=== PATIENT | male | born 1990 | race Caucasian/White ===

== ENCOUNTER 2016-09-28 11:22 | Emergency (ER) | payer SELFPAY ==
[2016-09-28] MEDS ORDERED: Sodium Chloride 0.9% 1,000 ML ONE (11:50)
[2016-09-28 11:58] LABS: #Basophils 0.1 thou/uL (0.0-0.2); #Monocytes 0.6 thou/uL (0.11-0.59); #Neutrophils 12.7 thou/uL (1.40-6.50); %Basophils 0.4 % (0.0-1.0); %Eosinophils 0.2 % (0.0-10.0); %Lymphocytes 6.7 % (21.0-51.0); %Monocytes 4.3 % (0.0-10.0); Red Blood Cell (RBC) Count 5.52 mill/uL (4.70-6.10); White Blood Cell (WBC) Count 14.4 thou/uL (4.8-10.8)
[2016-09-28 12:03] LABS: ALT (SGPT) 70 U/L (0-55); AST (SGOT) 38 U/L (5-34); Alkaline Phosphatase 133 U/L (40-150); Anion Gap 19 mmol/L (10-20); BUN (Urea Nitrogen) 10 mg/dL (8.9-20.6); Bilirubin, Total 0.4 mg/dL (0.2-1.2); Calc. Creatinine Clearance 0 mL/min (70-130); Calcium 9.6 mg/dL (7.8-10.44); Carbon Dioxide 19 mmol/L (22-29); Chloride 101 mmol/L (98-107); Estimated GFR-MDRD Greater than 90; Protein, Total 7.7 g/dL (6.0-8.3)
[2016-09-28 12:12] LABS: CK (CPK) 85 U/L (30-200)
[2016-09-28 12:15] LABS: Troponin I Less than 0.010 ng/mL (< 0.028)
[2016-09-28 12:50] LABS: Methadone Not Detected (NotDetected); Methamphetamine Not Detected (NotDetected)
--- NOTE | 2016-09-28 13:44 | ERRECORD ---
[facility] EMERGENCY RECORD ADMIN (11:32 [facility]) MERGE: Ambulance WedSep 28, 2016 11:12. HPI WEAK-DIZZY (14:00 [facility]) CHIEF COMPLAINT: Patient presents for evaluation of Pt woke up this am feeling dizzy and 'fuzzy in my head'. Associated with anxiety and numbness of his hands which is a normal sensation for him with his anxiety. Some palpitations that have resolved. Pt is an alcoholic with a history of heavy drinking daily >18 beers a day. Pt last drank last pm at 1800. Pt was worried his BP was up so took a lisinopril he had left from previously. No BP meds in 1 year. HISTORIAN: History provided by patient. LOCATION: No localizing symptoms. QUALITY: Symptoms described as, feeling unsteady, generalized weakness, Patient is alert and oriented to person, place and time, Son coma score is 15. TIME COURSE: Patient unable to describe onset of symptoms, Symptoms are improving. ASSOCIATED WITH: No associated ataxia, No associated chest pain, No associated chills, No associated fever, No associated gait disturbance, No associated headache, No associated nausea, Associated with palpitations, currently resolved, No associated vomiting, No associated visual changes, No associated upper respiratory infection. EXACERBATED BY: Patient's condition exacerbated by ambulating. RELIEVED BY: Patient's condition relieved by time. ROS (14:03 [facility]) CONSTITUTIONAL: Historian denies chills, denies fever. EYES: Historian denies eye pain, denies eye redness, denies eye discharge. ENT: Historian denies rhinorrhea, denies sore throat. CARDIOVASCULAR: Historian denies chest pain, reports palpitations. RESPIRATORY: Historian denies cough, denies sputum. SOB earlier that resolved. GI: Historian denies abdominal pain, denies diarrhea, denies nausea, denies vomiting. GENITOURINARY MALE: Historian denies dysuria, denies hematuria. MUSCULOSKELETAL: Historian denies arthralgias, denies myalgias. SKIN: Historian denies rash, denies skin changes. NEUROLOGIC: Historian reports dizziness, denies headache, denies paralysis, reports paresthesias. PSYCHIATRIC: Historian reports alcohol abuse, reports anxiety, reports drug abuse, reports marijuana abuse. PAST MEDICAL HISTORY MEDICAL HISTORY: Past medical history includes history of hypertension, which has been treated, NON COMPLIANT TAKING MEDS, HAS VERY POOR DENTITION. STATES IS IN PROCESS OF &a-1R&a+25V*p+0X*x2219C*c202B*c15G*c2P*p-0X&a-25V&a+1R Name: Maxime Weinberg : 1990 M26 MedRec: [id number] AcctNum: [id number] Prepared: WedSep 28, 2016 14:11 by Interface Page 1 of 3 pMD [facility] EMERGENCY RECORD GETTING DENTURES., Past medical history includes history of hypertension, which has been treated, Flu vaccine not up to date, Tetanus up to date, Pneumococcal vaccine not up to date. verified. (11:33 [facility]) MALE SURGICAL HISTORY: Patient has no surgical history. (11:33 [facility]) PSYCHIATRIC HISTORY: Psychiatric history includes, anxiety. (11:33 [facility]) SOCIAL HISTORY: Patient drinks every day, more than 10 drinks per day, Alcohol history notes: DRINKS A BOTTLE OF WHISKEY PER DAY, Patient currently uses drugs, abuses marijuana, Patient has no smoking history. (11:33 [facility]) FAMILY HISTORY: Notes: DIABETES, HTN. (11:46 [facility]) NOTES: Nursing records reviewed, Agree with nursing records. (14:04 [facility]) KNOWN ALLERGIES No Known Drug Allergies CURRENT MEDICATIONS (WedSep 28, 2016 11:31 [facility]) lisinopril: TABLET : Strength - 10 mg : ORAL Patient Dose: Unknown.Last Taken: 09/28/16. PT DOESN'T KNOW DOSAGE. VITAL SIGNS VITAL SIGNS: BP: 187/114 (Sitting), Pulse: 101 (Regular), Resp: 16 (Non-Labored), Temp: 97.9 (Oral), Pain: 0, O2 sat: 98 on Room Air, Time: 09/28/2016 11:29. (11:29 [facility]) BP: 138/79 (Lying), Pulse: 75 (Regular), Resp: 18 (Non-Labored), Pain: 0, O2 sat: 97 on Room Air, Time: 09/28/2016 11:56. (11:56 [facility]) BP: 142/92 (Lying), Pulse: 91 (Regular), Resp: 18 (Non-Labored), Pain: 0, O2 sat: 98 on Room Air, Time: 09/28/2016 12:29. (12:29 AL) BP: 131/71, Pulse: 85, Resp: 16, Pain: 0, O2 sat: 99 on RA, Time: 09/28/2016 13:02. (13:02 [facility]) PHYSICAL EXAM (14:03 [facility]) CONSTITUTIONAL: Vital signs reviewed, Patient appears non toxic, Patient alert and oriented to person, place and time. EYES: Eye exam included findings of eyelids normal to inspection, Pupils equally round and reactive to light, Conjunctiva normal. ENT: Pharynx exam normal, Uvula exam normal, Tonsil exam normal, Mouth exam included findings of, mucous membranes dry. NECK: Neck exam included findings of normal range of motion, Trachea midline, no jugular venous distention, no cervical adenopathy. RESPIRATORY CHEST: Respiratory exam included findings of no respiratory distress, Breath sounds clear, No wheezing, No rales, No rhonchi, Chest exam included findings of chest movement symmetrical. &a-1R&a+25V*p+0X*b5106L*c202B*c15G*c2P*p-0X&a-25V&a+1R Name: Maxime Weinberg : 1990 M26 MedRec: [id number] AcctNum: [id number] Prepared: WedSep 28, 2016 14:11 by Interface Page 2 of 3 pMD [facility] EMERGENCY RECORD CARDIOVASCULAR: Cardiovascular exam included findings of heart rate regular rate and rhythm, Heart sounds normal, normal S1, normal S2, no murmurs, no rub, no gallop. ABDOMEN MALE: Abdominal exam included findings of abdomen nontender, Bowel sounds normal. BACK: Back exam included findings of normal inspection, range of motion normal. UPPER EXTREMITY: Upper extremity exam included findings of inspection normal, Radial pulse normal, no cyanosis, no clubbing, no edema. LOWER EXTREMITY: Lower extremity exam included findings of inspection normal, no edema, no calf tenderness. NEURO: Son coma scale 15, Neuro exam findings include patient oriented to person, place and time, Speech normal. SKIN: Skin exam included findings of skin warm, dry, and normal in color, no rash. PSYCHIATRIC: Affect, anxious. MEDICATION ADMINISTRATION SUMMARY Drug Name: hydrALAZINE injection, Dose Ordered: 10 mg, Route: IV Push, Status: Held, Time: 11:56 09/28/2016, Drug Name: *sodium chloride 0.9 % intravenous, Dose Ordered: 1 L, Route: IV Fluid Infusion, Status: Given, Time: 11:50 09/28/2016, *Additional information available in notes, Detailed record available in Medication Service section. DOCTOR NOTES (13:03 [facility]) RE-EVALUATION: The patient's condition has improved, Feels better with the fluid. PROBLEM LIST No recorded problems DIAGNOSIS (13:04 [facility]) FINAL: PRIMARY: DIZZINESS AND GIDDINESS, ADDITIONAL: Alcohol abuse with anxiety. PRESCRIPTION No recorded prescriptions DISPOSITION PATIENT: Disposition Type: Discharge, Disposition: *Discharge Home. (13:04 [facility]) Patient left the department. (13:15 [facility]) [place]: ABIODUN=MD Tashi, Paco LHAL=AKIRA Tovar, Shonda &a-1R&a+25V*p+0X*c4703W*c202B*c15G*c2P*p-0X&a-25V&a+1R Name: Maxime Weinberg : 1990 M26 MedRec: [id number] AcctNum: [id number] Prepared: WedSep 28, 2016 14:11 by Interface Page 3 of 3 pMD [facility]D
--- NOTE | 2016-09-28 13:49 | PICIS ---
[facility] EMERGENCY RECORD ADMIN MERGE: Ambulance WedSep 28, 2016 11:12. (11:32 LHAL) TRIAGE (WedSep 28, 2016 11:31 LHAL) PATIENT: NAME: Maxime Weinberg, AGE: 26, GENDER: male, : [facility] 1990, TIME OF GREET: WedSep 28, 2016 11:23, PREFERRED LANGUAGE: [place] Verdean, ETHNICITY: Not or , ECODE BILLING MAP: [facility], SSN: [id number], Zip Code: [address], KG WEIGHT: 81.65, PHONE: , , , PERSON ID: [id number], PCP: none. (WedSep 28, 2016 11:31 LHAL) TRIAGE NOTES: WOKE UP AT 9A FEELING ANXIOUS AND WEAK, NOT TAKING HIS BP MEDS X 1 YR- STATES HE CAME HOME DRUNK LAST NIGHT AND PASSED OUT. (WedSep 28, 2016 11:31 LHAL) COMPLAINT: WEAK,ANXIOUS. (WedSep 28, 2016 11:31 LHAL) ADMISSION: URGENCY: 3 Urgent, ADMISSION SOURCE: Home, TRANSPORT: AMBULANCE - [facility], BED: TRIAGE. (WedSep 28, 2016 11:31 LHAL) ASSESSMENT: Assessment: WOKE UP FEELING ANXIOUS AND WEAK, Symptoms began 9 AM. (11:33 LHAL) PAIN: No complaint of pain, No aggravating factors, No efforts tried to relieve symptoms. (11:33 LHAL) IMMUNIZATIONS: Flu vaccine not up to date, Tetanus immunization up to date, Pneumococcal vaccine not up to date. (11:33 LHAL) SIRS SCORING: Heart Rate 55-109 (0), Temp range 96.8-101.1 (0), respiratory rate 12-24 (0), Mental Status altered: no (0), Infection or Suspected Infection: No. (11:33 LHAL) TRIAGE SCREENING: Patient denies suicidal ideation, Patient denies presence of domestic violence. (11:33 LHAL) PROVIDERS: TRIAGE NURSE: Shonda Tovar RN. (WedSep 28, 2016 11:31 LHAL) VITAL SIGNS: BP 187/114, (Sitting), Pulse 101, (Regular), Resp 16, (Non-Labored), Temp 97.9, (Oral), Pain 0, O2 Sat 98, on Room Air, Time 09/28/2016 11:29. (11:29 LHAL) PREVIOUS VISIT ALLERGIES: No Known Drug Allergies. (WedSep 28, 2016 11:31 LHAL) No Known Drug Allergies. (11:33 LHAL) KNOWN ALLERGIES No Known Drug Allergies CURRENT MEDICATIONS (WedSep 28, 2016 11:31 LHAL) lisinopril: TABLET : Strength - 10 mg : ORAL Patient Dose: Unknown.Last Taken: 09/28/16. PT DOESN'T KNOW DOSAGE. VITAL SIGNS VITAL SIGNS: BP: 187/114 (Sitting), Pulse: 101 (Regular), Resp: 16 (Non-Labored), Temp: 97.9 (Oral), Pain: 0, O2 sat: 98 on Room Air, &a-1R&a+25V*p+0X*s5057G*c202B*c15G*c2P*p-0X&a-25V&a+1R Name: Maxime Weinberg : 1990 M26 MedRec: [id number] AcctNum: [id number] Prepared: WedSep 28, 2016 14:17 by Interface Page 1 of 12 pMD [facility] EMERGENCY RECORD Time: 09/28/2016 11:29. (11:29 LHAL) BP: 138/79 (Lying), Pulse: 75 (Regular), Resp: 18 (Non-Labored), Pain: 0, O2 sat: 97 on Room Air, Time: 09/28/2016 11:56. (11:56 LHAL) BP: 142/92 (Lying), Pulse: 91 (Regular), Resp: 18 (Non-Labored), Pain: 0, O2 sat: 98 on Room Air, Time: 09/28/2016 12:29. (12:29 LHAL) BP: 131/71, Pulse: 85, Resp: 16, Pain: 0, O2 sat: 99 on RA, Time: 09/28/2016 13:02. (13:02 LHAL) NURSING ASSESSMENT: FOCUSED (11:31 LHAL) CONSTITUTIONAL: Patient arrives ambulatory, Gait steady, History obtained from patient, Patient appears, anxious, uncomfortable, Patient cooperative, Patient alert, Oriented to person, place and time, Skin warm, Skin dry, Skin normal in color, Mucous membranes pink, Mucous membranes moist, Patient is well-groomed, Patient complains of GENERALIZED WEAKNESS, ANXIOUS, NAUSEA, PT AMBULATES TO ROOM 3 ON EMS ARRIVAL AT 1120AM, STEADY GAIT, THEN TRIAGED. PAIN: Patient rates pain as 0 out of 10. EYES: Focused eye assessment finding include pupils equally round and reactive to light, Left pupil 3 mm in size, Right pupil 3 mm in size. NEURO: Focused neuro assessment findings include patient alert, cooperative, No facial droop noted, Speech coherent, Weakness, to all extremities, FEELS GENERALLY WEAK, no numbness, No loss of consciousness. GCS: GCS Total: 15. RESPIRATORY: Focused respiratory assessment findings include breath sounds clear, to the left upper lobe, to the right upper lobe, to bilateral upper lobes, to the right middle lobe, to the left lower lobe, to the right lower lobe, to bilateral lower lobes. ABDOMEN: Focused abdominal assessment findings include abdomen soft, non tender, Nausea present, Vomiting, Number of times: X 1 IN TRIAGE ONLY, SMALL AMT, Bowel sounds present. GENITOURINARY: Focused genitourinary assessment not applicable. MUSCULOSKELETAL: Focused musculoskeletal assessment findings include normal range of motion. LACERATION: Focused laceration assessment not applicable. NOTES: Notes: PT DRINKS WHISKEY DAILY, APPROX ONE BOTTLE A DAY, SMOKES WEED, LAST TIME WAS YESTERDAY, PT HASN'T EATEN YET TODAY, FINGERSTICK BS PER EMS WAS 214, PT HAS FAMILY HX DIABETES, HTN, PT HASN'T BEEN TAKING HIS BP MED REGULARLY X ONE YR, TAKES "WHEN I NEED IT", TOOK ONE ORANGE GROWER. SAFETY: Side rails up, Cart/Stretcher in lowest position, Call light within reach, Hospital ID band on. NURSING PROCEDURE: CHIMNEY CONSTRUCTION SUPERVISOR (11:50 LHAL) PATIENT IDENTIFIER: Patient actively involved in identification process, Patient's identity verified by patient stating name, Patient's identity verified by patient stating date, Patient's &a-1R&a+25V*p+0X*j3659D*c202B*c15G*c2P*p-0X&a-25V&a+1R Name: Maxime Weinberg : 1990 M26 MedRec: [id number] AcctNum: [id number] Prepared: WedSep 28, 2016 14:17 by Interface Page 2 of 12 D [facility] EMERGENCY RECORD identity verified by hospital ID ayo. CHIMNEY CONSTRUCTION SUPERVISOR: Cardiac monitoring indicated for WEAKNESS, HTN, DIZZY, Patient placed on dress designer, Heart rate: 85, showing normal sinus rhythm, without ectopy, with no ST segment changes, Strip posted on chart, Patient placed on non-invasive blood pressure monitor, with disposable blood pressure cuff applied, Patient placed on continuous pulse oximetry, Adult/pediatric oxisensor applied, Oxygen saturation 97%. FOLLOW-UP: After procedure, alarms set and on, After procedure, patient tolerating monitoring. SAFETY: Side rails up, Cart/Stretcher in lowest position, Call light within reach, Hospital ID band on. NURSING PROCEDURE: DISCHARGE NOTE (13:11 LHAL) DISCHARGE: Patient discharged to home, ambulating without assistance, friend driving, accompanied by friend, Summary of Care printed/ provided, Patient requested and was provided an electronic copy of Discharge Instructions, Transition record given to patient, Discharge instructions given to patient, Simple or moderate discharge teaching performed, by Genoveva TOVAR RN, Medication reconciliation form given, and reviewed with patient, Above person(s) verbalized understanding of discharge instructions and follow-up care, Notes: DC HOME STABLE, NO SYMPTOMS, A&OX3, SKIN PINK W/D, NORMAL EVEN RESP, AMBULATES STEADY GAIT. BELONGINGS: Belongings and valuables with patient upon arrival to the Emergency Department include:. NURSING PROCEDURE: EKG CHART (11:35 JPAR) PATIENT IDENTIFIER: Patient actively involved in identification process, Patient's identity verified by patient stating name, Patient's identity verified by patient stating date, Patient's identity verified by hospital ID ayo. EKG: EKG indicated for HTN, Anxiety, 12 lead EKG performed on the left chest, done by Sudarshan KING, first EKG. FOLLOW-UP: After procedure, EKG for interpretation given to Dr. Akins. SAFETY: Side rails up, Cart/Stretcher in lowest position, Call light within reach, Hospital ID band on. NURSING PROCEDURE: IV PATIENT IDENITIFIER: Patient actively involved in identification process, Patient's identity verified by patient stating name, Patient's identity verified by patient stating date, Patient's identity verified by hospital ID bracelet. (11:35 LHAL) IV SITE 1: IV therapy indicated for hydration, IV established, to the left wrist, using a 20 gauge catheter, in one attempt, IV site prepped with CHLOROPREP, Saline lock established, Flushed with normal saline (mls): 10 CC, Labs drawn at time of placement, labeled in the presence of the patient and sent to lab. (11:35 LHAL) FOLLOW-UP SITE 1: IV discontinued, due to patient being &a-1R&a+25V*p+0X*b7200K*c202B*c15G*c2P*p-0X&a-25V&a+1R Name: Maxime Weinberg : 1990 M26 MedRec: [id number] AcctNum: [id number] Prepared: WedSep 28, 2016 14:17 by Interface Page 3 of 12 pMD [facility] EMERGENCY RECORD discharged, catheter intact. (13:12 LHAL) SAFETY: Side rails up, Cart/Stretcher in lowest position, Call light within reach, Hospital ID band on. (11:35 LHAL) NURSING PROCEDURE: NURSE NOTES NURSES NOTES: Patient examined by physician. (11:41 LHAL) Patient is improving, Patient in no apparent distress, Patient resting quietly, Patient is awaiting results, Notes: LIGHTS DIMMED, RESTING WITH EYES CLOSED, NO COMPLAINTS,. (12:06 LHAL) Patient is improving, Patient in no apparent distress, Warm blanket given to patient, Notes: PT STATES HE FEELS MUCH BETTER, IVF INFUSED. (12:30 LHAL) Patient re-evaluated by physician. (13:02 LHAL) VITAL SIGNS: BP: 131, / 71, Pulse: 85, Resp: 16, Pain: 0, O2 sat: 99, on: RA. (13:02 LHAL) NURSING PROCEDURE: ORTHOSTATIC VITAL SIGNS (11:31 LHAL) PATIENT IDENTIFIER: Patient actively involved in identification process, Patient's identity verified by patient stating name, Patient's identity verified by patient stating date, Patient's identity verified by hospital ID bracelet. ORTHOSTATIC VITAL SIGNS: Orthostatic vital signs indicated for dizziness, Orthostatic vital signs indicated for vomiting and diarrhea, Orthostatic vital signs indicated for NAUSEATED, VOMITED X 1, Lying:, Blood pressure: 151/85, Pulse: 85, No dizziness, Sitting:, Blood pressure: 164/108, Pulse: 95, No dizziness with position change, Standing:, Blood pressure: 159/103, Pulse: 93, No dizziness with position change, Notes: DONE AT 1124, ASYMPTOMATIC. FOLLOW-UP: After procedure, results given to Dr. DR Elizabeth AKINS. SAFETY: Side rails up, Cart/Stretcher in lowest position, Call light within reach, Hospital ID band on. NURSING PROCEDURE: URINE COLLECTION (12:29 [facility]) PATIENT IDENTIFIER: Patient actively involved in identification process, Patient's identity verified by patient stating name, Patient's identity verified by patient stating date, Patient's identity verified by hospital ID bracelet. URINE COLLECTION MALE: Urine collection indicated for DRUG SCREEN, Urine collected by void, output amount (mL) 100, urine yellow in color, and clear, Specimen labeled in the presence of the patient and sent to lab. SAFETY: Side rails up, Cart/Stretcher in lowest position, Call light within reach, Hospital ID band on. ORDER DETAILS Order Name: Alcohol, Status: Active, Time: 11:49 09/28/2016, User: ABIODUN, - Ordered for: MD Akins Joshua, - Entered by: MD Akins Joshua - WedSep 28, 2016 11:49, &a-1R&a+25V*p+0X*t9336D*c202B*c15G*c2P*p-0X&a-25V&a+1R Name: Maxime Weinberg : 1990 M26 MedRec: [id number] AcctNum: [id number] Prepared: WedSep 28, 2016 14:17 by Interface Page 4 of 12 pMD [facility] EMERGENCY RECORD - Quantity: 1, Order Name: B type Natriuretic Peptide, Status: Active, Time: 11:48 09/28/2016, User: ABIODUN, - Ordered for: MD Akins Joshua, - Entered by: MD Akins Joshua - WedSep 28, 2016 11:48, - Quantity: 1, Order Name: CHIMNEY CONSTRUCTION SUPERVISOR ED, Status: Done, Time: 11:49 09/28/2016, User: IRENA, - Ordered for: MD Akins Joshua, - Entered by: MD Akins Joshua - [facility] Sep 28, 2016 11:48, - Quantity: 1, Order Name: Cardiac Profile w/CKMB & Troponin - I, Status: Active, Time: 11:48 09/28/2016, User: ABIODUN, - Ordered for: MD Akins Joshua, - Entered by: MD Akins Joshua - [facility] Sep 28, 2016 11:48, - Quantity: 1, Order Name: CBC with Differential, Status: Active, Time: 11:32 09/28/2016, User: IRENA, - Ordered for: MD Akins Joshua, - Entered by: AKIRA Tovar, [facility] Sep 28, 2016 11:32, - Quantity: 1, Order Name: CK (CPK), Status: Active, Time: 11:48 09/28/2016, User: ABIODUN, - Ordered for: MD Akins Joshua, - Entered by: MD Akins Joshua [facility] Sep 28, 2016 11:48, - Quantity: 1, Order Name: Comprehensive Metabolic Panel, Status: Active, Time: 11:32 09/28/2016, User: IRENA, - Ordered for: MD Akins Joshua, - Entered by: AKIRA Tovar, [facility] Sep 28, 2016 11:32, - Quantity: 1, Order Name: Drug Screen, Urine, Status: Active, Time: 11:49 09/28/2016, User: ABIODUN, - Ordered for: MD Akins Joshua, - Entered by: MD Akins Joshua [facility] Sep 28, 2016 11:49, - Quantity: 1, Order Name: EKG 12 Lead in Emergency Room, Status: Active, Time: 11:32 09/28/2016, User: IRENA, - Ordered for: MD Akins Joshua, - Entered by: AKIRA Tovar [facility] Sep 28, 2016 11:32, - Quantity: 1, Order Name: ORTHOSTATIC VITAL SIGNS, Status: Done, Time: 11:47 09/28/2016, User: IRENA, - Ordered for: MD Akins Joshua, - Entered by: AKIRA Tovar Linda - WedSep 28, 2016 11:47, - Quantity: 1, Order Name: SALINE LOCK, Status: Done, Time: 11:34 09/28/2016, User: LHMONTY, - Ordered for: MD Akins Joshua, - Entered by: AKIRA Tovar Linda - WedSep 28, 2016 11:32, &a-1R&a+25V*p+0X*q9690K*c202B*c15G*c2P*p-0X&a-25V&a+1R Name: Maxime Weinberg : 1990 M26 MedRec: [id number] AcctNum: [id number] Prepared: WedSep 28, 2016 14:17 by Interface Page 5 of 12 pMD [facility] EMERGENCY RECORD - Quantity: 1. MEDICATION ADMINISTRATION SUMMARY Drug Name: hydrALAZINE injection, Dose Ordered: 10 mg, Route: IV Push, Status: Held, Time: 11:56 09/28/2016, Drug Name: *sodium chloride 0.9 % intravenous, Dose Ordered: 1 L, Route: IV Fluid Infusion, Status: Given, Time: 11:50 09/28/2016, *Additional information available in notes, Detailed record available in Medication Service section. MEDICATION SERVICE hydrALAZINE injection: Order: hydrALAZINE injection (hydralazine HCl) - Dose: 10 mg : IV Push Ordered by: Paco Akins MD Entered by: Paco Akins MD WedSep 28, 2016 11:50 , Held by: Shonda Tovar RN WedSep 28, 2016 11:56 Reason: Vital signs stabilized. sodium chloride 0.9 % intravenous: Order: sodium chloride 0.9 % intravenous (0.9 % sodium chloride) - Dose: 1 L : IV Fluid Infusion Notes: (Bolus) Ordered by: Paco Akins MD Entered by: Paco Akins MD WedSep 28, 2016 11:49 Documented as given by: Shonda Tovar RN WedSep 28, 2016 11:50 Patient, Medication, Dose, Route and Time verified prior to administration. Amount given: 1000 CC, IV SITE #1 IV fluids established for hydration, IV SITE #1 into left wrist, IV SITE #1 1st bag hung, amount 1 Liter hung, IV SITE #1 bolus of 1000 ml established, via primary tubing, Catheter placement confirmed via flush prior to administration, IV site without signs or symptoms of infiltration during medication administration, No swelling during administration, No drainage during administration, IV flushed after administration, Correct patient, time, route, dose and medication confirmed prior to administration, Patient advised of actions and side-effects prior to administration, Allergies confirmed and medications reviewed prior to administration, Administered by Genoveva TOVAR RN, Patient in position of comfort, Side rails up, Cart in lowest position. : Follow Up : No signs or symptoms of allergic reaction noted, Decreased symptoms, _IV SITE #1:_, IV fluid infusion discontinued, on WedSep 28, 2016 12:31, 45 minutes, ., Total amount infused: 1000 CC, IV Line flushed after administration, Advised not to ambulate without assistance, Patient in position of comfort, Side rails up, Cart in lowest position. (12:30 LHAL) HPI WEAK-DIZZY (14:00 JLOY) CHIEF COMPLAINT: Patient presents for evaluation of Pt woke up this am feeling dizzy and 'fuzzy in my head'. Associated with anxiety and numbness of his hands which is a normal sensation for him &a-1R&a+25V*p+0X*t4619I*c202B*c15G*c2P*p-0X&a-25V&a+1R Name: Maxime Weinberg : 1990 M26 MedRec: [id number] AcctNum: [id number] Prepared: WedSep 28, 2016 14:17 by Interface Page 6 of 12 pMD [facility] EMERGENCY RECORD with his anxiety. Some palpitations that have resolved. Pt is an alcoholic with a history of heavy drinking daily >18 beers a day. Pt last drank last pm at 1800. Pt was worried his BP was up so took a lisinopril he had left from previously. No BP meds in 1 year. HISTORIAN: History provided by patient. LOCATION: No localizing symptoms. QUALITY: Symptoms described as, feeling unsteady, generalized weakness, Patient is alert and oriented to person, place and time, [place] coma score is 15. TIME COURSE: Patient unable to describe onset of symptoms, Symptoms are improving. ASSOCIATED WITH: No associated ataxia, No associated chest pain, No associated chills, No associated fever, No associated gait disturbance, No associated headache, No associated nausea, Associated with palpitations, currently resolved, No associated vomiting, No associated visual changes, No associated upper respiratory infection. EXACERBATED BY: Patient's condition exacerbated by ambulating. RELIEVED BY: Patient's condition relieved by time. ROS (14:03 JL) CONSTITUTIONAL: Historian denies chills, denies fever. EYES: Historian denies eye pain, denies eye redness, denies eye discharge. ENT: Historian denies rhinorrhea, denies sore throat. CARDIOVASCULAR: Historian denies chest pain, reports palpitations. RESPIRATORY: Historian denies cough, denies sputum. SOB earlier that resolved. GI: Historian denies abdominal pain, denies diarrhea, denies nausea, denies vomiting. GENITOURINARY MALE: Historian denies dysuria, denies hematuria. MUSCULOSKELETAL: Historian denies arthralgias, denies myalgias. SKIN: Historian denies rash, denies skin changes. NEUROLOGIC: Historian reports dizziness, denies headache, denies paralysis, reports paresthesias. PSYCHIATRIC: Historian reports alcohol abuse, reports anxiety, reports drug abuse, reports marijuana abuse. PAST MEDICAL HISTORY MEDICAL HISTORY: Past medical history includes history of hypertension, which has been treated, NON COMPLIANT TAKING MEDS, HAS VERY POOR DENTITION. STATES IS IN PROCESS OF GETTING DENTURES., Past medical history includes history of hypertension, which has been treated, Flu vaccine not up to date, Tetanus up to date, Pneumococcal vaccine not up to date. verified. (11:33 LHAL) MALE SURGICAL HISTORY: Patient has no surgical history. (11:33 LHAL) PSYCHIATRIC HISTORY: Psychiatric history includes, &a-1R&a+25V*p+0X*c9904Q*c202B*c15G*c2P*p-0X&a-25V&a+1R Name: Maxime Weinberg : 1990 M26 MedRec: [id number] AcctNum: [id number] Prepared: WedSep 28, 2016 14:17 by Interface Page 7 of 12 pMD [facility] EMERGENCY RECORD anxiety. (11:33 LHAL) SOCIAL HISTORY: Patient drinks every day, more than 10 drinks per day, Alcohol history notes: DRINKS A BOTTLE OF WHISKEY PER DAY, Patient currently uses drugs, abuses marijuana, Patient has no smoking history. (11:33 LHAL) FAMILY HISTORY: Notes: DIABETES, HTN. (11:46 LHAL) NOTES: Nursing records reviewed, Agree with nursing records. (14:04 JL) PHYSICAL EXAM (14:03 JL) CONSTITUTIONAL: Vital signs reviewed, Patient appears non toxic, Patient alert and oriented to person, place and time. EYES: Eye exam included findings of eyelids normal to inspection, Pupils equally round and reactive to light, Conjunctiva normal. ENT: Pharynx exam normal, Uvula exam normal, Tonsil exam normal, Mouth exam included findings of, mucous membranes dry. NECK: Neck exam included findings of normal range of motion, Trachea midline, no jugular venous distention, no cervical adenopathy. RESPIRATORY CHEST: Respiratory exam included findings of no respiratory distress, Breath sounds clear, No wheezing, No rales, No rhonchi, Chest exam included findings of chest movement symmetrical. CARDIOVASCULAR: Cardiovascular exam included findings of heart rate regular rate and rhythm, Heart sounds normal, normal S1, normal S2, no murmurs, no rub, no gallop. ABDOMEN MALE: Abdominal exam included findings of abdomen nontender, Bowel sounds normal. BACK: Back exam included findings of normal inspection, range of motion normal. UPPER EXTREMITY: Upper extremity exam included findings of inspection normal, Radial pulse normal, no cyanosis, no clubbing, no edema. LOWER EXTREMITY: Lower extremity exam included findings of inspection normal, no edema, no calf tenderness. NEURO: [place] coma scale 15, Neuro exam findings include patient oriented to person, place and time, Speech normal. SKIN: Skin exam included findings of skin warm, dry, and normal in color, no rash. PSYCHIATRIC: Affect, anxious. EVENTS TRANSFER: Triage to Emergency Triage. (WedSep 28, 2016 11:31 LHAL) Emergency Triage to Emergency Room -03. (11:32 LHAL) Removed from Emergency Emergency Room -03. (13:15 LHAL) DOCTOR NOTES (13:03 [facility]) RE-EVALUATION: The patient's condition has improved, Feels better with the fluid. &a-1R&a+25V*p+0X*p2016L*c202B*c15G*c2P*p-0X&a-25V&a+1R Name: Maxime Weinberg : 1990 M26 MedRec: [id number] AcctNum: [id number] Prepared: WedSep 28, 2016 14:17 by Interface Page 8 of 12 pMD [facility] EMERGENCY RECORD PROBLEM LIST No recorded problems DIAGNOSIS (13:04 JLOY) FINAL: PRIMARY: DIZZINESS AND GIDDINESS, ADDITIONAL: Alcohol abuse with anxiety. DISPOSITION PATIENT: Disposition Type: Discharge, Disposition: *Discharge Home. (13:04 JLOY) Patient left the department. (13:15 LHAL) INSTRUCTION (13:05 JLOY) DISCHARGE: ALCOHOL ABUSE, ANXIETY REACTION. FOLLOWUP: Follow up with Primary Care Physician in 7-10 days. PRESCRIPTION No recorded prescriptions IMAGING *DISCHARGE INSTRUCTIONS RECEIPT: Image captured from scanner. (13:13 LHAL) *SUPPLY CHARGE SHEET: Image captured from scanner. (13:13 LHAL) MONITOR STRIPS: Image captured from scanner. (13:13 LHAL) *EKG: Image captured from scanner. (13:14 LHAL) ADMIN DIGITAL SIGNATURE: AKIRA Tovar, Shonda. (13:14 [facility]) MD Tashi, Paco. (14:04 JL) RESULTS LABORATORY: B type Natriuretic Peptide Collection DT: WedSep 28, 2016 11:59, B type Natriuretic Peptide Less than 10.0 pg/mL, Range (0-100). (12:25 JLOY) Cardiac Profile w/CKMB & TropI Collection DT: WedSep 28, 2016 11:59, CKMB 1.1 ng/mL, Range (0-6.6), Troponin I Less than 0.010 ng/mL, Range (< 0.028), Reference Range , 0.00 - 0.028 ng/mL Negative 0.029 - 0.29 ng/mL , Indeterminate Greater or Equal to 0.3 ng/mL Strongly suggests [place] , . (12:25 JLOY) Alcohol Collection DT: WedSep 28, 2016 11:59, Alcohol 14 mg/dL, Range (Less than 10), The pharmacological response to blood alcohol levels may vary from, individual to individual. &a-1R&a+25V*p+0X*l8332N*c202B*c15G*c2P*p-0X&a-25V&a+1R Name: Maxime Weinberg : 1990 M26 MedRec: [id number] AcctNum: [id number] Prepared: WedSep 28, 2016 14:17 by Interface Page 9 of 12 pMD [facility] EMERGENCY RECORD Negative: Less than 10, mg/dL Toxic: 50 - 100 mg/dL , Depression of [employer]: Greater than 100 mg/dL , Fatalities reported: Greater than 400 mg/dL . (12:25 [facility]) CK (CPK) Collection DT: WedSep 28, 2016 11:59, CK (CPK) 85 U/L, Range (30-200). (12:25 [facility]) Comprehensive Metabolic Panel Collection DT: WedSep 28, 2016 11:41, *Sodium 135 - L mmol/L, Range (136-145), Potassium 3.8 mmol/L, Range (3.5-5.1), Chloride 101 mmol/L, Range (98-107), *Carbon Dioxide 19 - L mmol/L, Range (22-29), Anion Gap 19 mmol/L, Range (10-20), BUN (Urea Nitrogen) 10 mg/dL, Range (8.9-20.6), Creatinine 0.89 mg/dL, Range (0.7-1.3), Estimated GFR-MDRD Greater than 90 , Reference Range for Estimated GFR: Greater than 90, mL/min/1.73 m2 NOTE: The MDRD equation has not been validated for use, with the elderly (over 70 years of age), women, patients with, serious comorbid condition or persons with extremes of body size, muscle, mass, or nutritional status. , *Glucose 190 - H mg/dL, Range (70-105), Calcium 9.6 mg/dL, Range (7.8-10.44), Bilirubin, Total 0.4 mg/dL, Range (0.2-1.2), Protein, Total 7.7 g/dL, Range (6.0-8.3), NOTE: Plasma values are generally 0.3 to 0.5 g/dL higher than serum values, due to the presence of fibrinogen. , Albumin 4.7 g/dL, Range (3.5-5.0), Globulin 3.0 g/dL, Range (2.4-3.5), Alb/Glob Ratio 1.6 g/dL, Range (1.2-2.2), Alkaline Phosphatase 133 U/L, Range (40-150), *AST (SGOT) 38 - H U/L, Range (5-34), *ALT (SGPT) 70 - H U/L, Range (0-55). (12:25 [facility]) CBC with Differential Collection DT: WedSep 28, 2016 11:41, *White Blood Cell (WBC) Count 14.4 - H thou/uL, Range (4.8-10.8), Red Blood Cell (RBC) Count 5.52 mill/uL, Range (4.70-6.10), Hemoglobin 15.4 g/dL, Range (14.0-18.0), Hematocrit 47.0 %, Range (42.0-52.0), Mean Corpuscular Volume 85.2 fl, Range (80.0-94.0), Mean Corpuscular Hemoglobin 27.9 pg, Range (27.0-31.0), Mean Corpuscular HGB CONC 32.7 g/dL, Range (32.0-36.0), &a-1R&a+25V*p+0X*t5967C*c202B*c15G*c2P*p-0X&a-25V&a+1R Name: Maxime Weinberg : 1990 M26 MedRec: [id number] AcctNum: [id number] Prepared: WedSep 28, 2016 14:17 by Interface Page 10 of 12 [facility] EMERGENCY RECORD RBC Distribution Width 12.6 %, Range (11.5-14.5), Platelet Count 386 thou/uL, Range (130-400), *Mean Platelet Volume 6.0 - L fL, Range (7.4-10.4), *%Neutrophils 88.5 - H %, Range (42.0-75.0), *%Lymphocytes 6.7 - L %, Range (21.0-51.0), %Monocytes 4.3 %, Range (0.0-10.0), %Eosinophils 0.2 %, Range (0.0-10.0), %Basophils 0.4 %, Range (0.0-1.0), *#Neutrophils 12.7 - H thou/uL, Range (1.40-6.50), *#Lymphocytes 1.0 - L thou/uL, Range (1.20-3.40), *#Monocytes 0.6 - H thou/uL, Range (0.11-0.59), #Eosinphils 0.0 thou/uL, Range (0.0-0.7), #Basophils 0.1 thou/uL, Range (0.0-0.2). (12:25 [facility]) Drug Screen, Urine Collection DT: WedSep 28, 2016 12:33, *THC/Cannabinoid Screen Detected - H , Range (NotDetected), Phencyclidine (PCP) Not Detected , Range (NotDetected), Cocaine Metabolite Screen Not Detected , Range (NotDetected), Methamphetamine Not Detected , Range (NotDetected), Opiate Screen Not Detected , Range (NotDetected), Amphetamine Not Detected , Range (NotDetected), Benzodiazepine Screen Not Detected , Range (NotDetected), Tricyclic Screen Not Detected , Range (NotDetected), Methadone Not Detected , Range (NotDetected), Barbiturates Screen Not Detected , Range (NotDetected), Oxycodone Screen Not Detected , Range (NotDetected), Propoxyphene Screen Not Detected , Range (NotDetected), Drug Screen Cutoff , Range (), The [employer] Profile-V Panel for Qualitative Drugs of Abuse assays are for, presumptive screening testing only. The drug class and detection limits, are as follows: Drug Class Detection Limit Amphetamine , 500 ng/mL* Barbiturates 200 ng/mL , Benzodiazepines 150 ng/mL* Cocaine 150 ng/mL*, Methamphetamine 500 ng/mL* Methadone 200, ng/mL* Opiates 100 ng/mL* Oxycodone , 100 ng/mL PCP 25 ng/mL Propoxyphene , 300 ng/mL Tricyclic Antidepressants 300 ng/mL Cannabinoids (THC) , 50 ng/mL Tests which yield a presumptive positive result must be , tested using a more specific alternate chemical method in order to obtain, a confirmed analytical result. Additional confirmation and identification, may be ordered on a routine basis, if desired. Presumptive positive urines, are held for &a-1R&a+25V*p+0X*x3818X*c202B*c15G*c2P*p-0X&a-25V&a+1R Name: Maxime Weinberg : 1990 6 MedRec: [id number] AcctNum: [id number] Prepared: WedSep 28, 2016 14:17 by Interface Page 11 of 12 [facility] EMERGENCY RECORD two weeks. . (13:01 ABIODUN) Sherman: ABOIDUN=MD Tashi, Paco ARMSTRONG=AKIRA Burnette, Sudarshan OSBORN=AKIRA Tovar, Shonda &a-1R&a+25V*p+0X*l5902F*c202B*c15G*c2P*p-0X&a-25V&a+1R Name: Maxime Weinberg : 1990 [facility] MedRec: [id number] AcctNum: [id number] Prepared: WedSep 28, 2016 14:17 by Interface Page 12 of 12 [facility] MEDICATION RECONCILIATION You were seen in the Emergency Department on: WedSep 28, 2016 KNOWN ALLERGIES No Known Drug Allergies MEDICATIONS GIVEN WHILE IN THE EMERGENCY DEPARTMENT sodium chloride 0.9 % intravenous (0.9 % sodium chloride) - Dose: 1 liter(s) : IV Fluid Infusion HOME MEDICATIONS CONTINUE PRESCRIBED lisinopril : TABLET : Strength - 10 mg : ORAL Continue as prescribed Patient had been taking: Dose unknown Last Taken: 09/28/16. Comment: PT DOESN'T KNOW DOSAGE. &a-1R&a+25V*p+0X*d2446K*c202B*c15G*c2P*p-0X&a-25V&a+1R Name: Maxime Weinberg : 1990 [facility] MedRec: [id number] AcctNum: [id number] Prepared: WedSep 28, 2016 14:17 by Interface Giuliana MARTINS
== END 2016-09-28 13:12 | disposition home or self-care (01) ==
LOC: NAV ERS 11:22
DX: F41.9 Anxiety disorder, unspecified (principal); F10.10 Alcohol abuse, uncomplicated; I10 Essential (primary) hypertension; Z79.899 Other long term (current) drug therapy
CPT/HCPCS: 80053; 80307; 82553; 83880; 84484; 85025; 93005; 96360; G0478; G0479; J7050

== ENCOUNTER 2017-05-20 19:08 | Emergency (ER) | payer SELFPAY ==
[2017-05-20 19:54] LABS: #Basophils 0.1 thou/uL (0.0-0.2); #Eosinphils 0.1 thou/uL (0.0-0.7); #Lymphocytes 1.5 thou/uL (1.20-3.40); #Monocytes 0.4 thou/uL (0.11-0.59); #Neutrophils 5.9 thou/uL (1.40-6.50); %Basophils 0.9 % (0.0-1.0); %Eosinophils 0.9 % (0.0-10.0); %Monocytes 4.5 % (0.0-10.0); %Neutrophils 74.7 % (42.0-75.0); Mean Corpuscular HGB CONC 32.2 g/dL (32.0-36.0); Mean Corpuscular Hemoglobin 26.7 pg (27.0-31.0); Mean Corpuscular Volume 82.8 fl (80.0-94.0); Mean Platelet Volume 5.9 fL (7.4-10.4); Platelet Count 325 thou/uL (130-400); RBC Distribution Width 12.2 % (11.5-14.5); Red Blood Cell (RBC) Count 5.63 mill/uL (4.70-6.10); White Blood Cell (WBC) Count 7.8 thou/uL (4.8-10.8)
--- NOTE | 2017-05-20 20:02 | RAD ---
AP CHEST: History: Chest pain. FINDINGS: Lungs are clear. Heart and mediastinum appear unremarkable. IMPRESSION: Negative chest. POS: [facility]
[2017-05-20] MEDS ORDERED: Sodium Chloride 0.9% 1,000 ML ONE (20:16)
[2017-05-20 20:18] LABS: Blood, Urine Trace (Negative); Clarity Clear (Clear); Glucose, Urine (Dipstick) Negative (Negative); Leukocyte Negative (Negative); Nitrite Negative (Negative); Protein, Urine (Dipstick) Negative (Neg-Trace); Specific Gravity, Urine 1.025 (1.005-1.030); Urobilinogen 0.2 mg/dL (0.2-1.0)
[2017-05-20 20:21] LABS: Amphetamine Not Detected (NotDetected); Barbiturates Screen Not Detected (NotDetected); Benzodiazepine Screen Not Detected (NotDetected); Cocaine Metabolite Screen Not Detected (NotDetected); Medtox Control Line Valid? VALID (VALID); Methadone Not Detected (NotDetected); Methamphetamine Not Detected (NotDetected); Opiate Screen Not Detected (NotDetected); Oxycodone Screen Not Detected (NotDetected); Phencyclidine (PCP) Not Detected (NotDetected); THC/Cannabinoid Screen Detected (NotDetected); Tricyclic Screen Not Detected (NotDetected)
[2017-05-20 20:22] LABS: Bilirubin Negative (Negative); Icto Negative (Negative)
[2017-05-20 20:29] LABS: CKMB 2.4 ng/mL (0-6.6); Troponin I Less than 0.010 ng/mL (< 0.028)
[2017-05-20 20:32] LABS: Bacteria/HPF None Seen HPF (None Seen); RBC/HPF None Seen HPF (0-3); Squamous Epithelial 0-3 HPF (0-3); WBC/HPF None Seen HPF (0-3)
[2017-05-20 20:56] LABS: ALT (SGPT) 74 U/L (8-55); AST (SGOT) 41 U/L (5-34); Albumin 4.8 g/dL (3.5-5.0); Alkaline Phosphatase 101 U/L (40-150); Anion Gap 16 mmol/L (10-20); BUN (Urea Nitrogen) 11 mg/dL (8.9-20.6); Bilirubin, Total 0.8 mg/dL (0.2-1.2); Calc. Creatinine Clearance 0 mL/min (70-130); Carbon Dioxide 24 mmol/L (22-29); Chloride 100 mmol/L (98-107); Estimated GFR-MDRD Greater than 90; Globulin 3.3 g/dL (2.4-3.5); Glucose 161 mg/dL (70-105); Lipase 20 U/L (8-78); Potassium 3.5 mmol/L (3.5-5.1); Protein, Total 8.1 g/dL (6.0-8.3); Sodium 136 mmol/L (136-145)
== END 2017-05-20 21:25 | disposition home or self-care (01) ==
LOC: NAV ERS 19:08
DX: R00.2 Palpitations (principal); K02.9 Dental caries, unspecified; I10 Essential (primary) hypertension; F41.9 Anxiety disorder, unspecified; Z79.899 Other long term (current) drug therapy
CPT/HCPCS: 36415; 71010; 80053; 80306; 81003; 81015; 82553; 83690; 83735; 84443; 84484; 85025; 93005; 96360; J7050

== ENCOUNTER 2018-04-22 15:31 | Emergency (ER) | payer SELFPAY ==
[2018-04-22] MEDS ORDERED: Acetaminophen 500 MG TAB ONE (15:53)
[2018-04-22 15:54] LABS: #Basophils 0.1 thou/uL (0.0-0.2); #Eosinphils 0.5 thou/uL (0.0-0.7); #Lymphocytes 1.5 thou/uL (1.20-3.40); #Monocytes 0.8 thou/uL (0.11-0.59); #Neutrophils 6.8 thou/uL (1.40-6.50); %Basophils 0.7 % (0.0-1.0); %Eosinophils 5.3 % (0.0-10.0); %Lymphocytes 15.8 % (21.0-51.0); %Monocytes 8.4 % (0.0-10.0); %Neutrophils 69.9 % (42.0-75.0); Hemoglobin 13.3 g/dL (14.0-18.0); Mean Corpuscular HGB CONC 32.2 g/dL (32.0-36.0); Mean Corpuscular Hemoglobin 26.5 pg (27.0-31.0); Mean Corpuscular Volume 82.3 fL (78.0-98.0); Mean Platelet Volume 6.4 fL (7.4-10.4); Platelet Count 278 thou/uL (130-400); RBC Distribution Width 12.6 % (11.5-14.5); Red Blood Cell (RBC) Count 5.02 mill/uL (4.70-6.10); White Blood Cell (WBC) Count 9.7 thou/uL (4.8-10.8)
[2018-04-22 16:13] LABS: ALT (SGPT) 29 U/L (8-55); AST (SGOT) 25 U/L (5-34); Albumin 4.4 g/dL (3.5-5.0); Alkaline Phosphatase 115 U/L (40-150); Anion Gap 17 mmol/L (10-20); BUN (Urea Nitrogen) 7 mg/dL (8.9-20.6); Bilirubin, Total 0.7 mg/dL (0.2-1.2); CK (CPK) 503 U/L (30-200); Calc. Creatinine Clearance 0 mL/min (70-130); Calcium 9.2 mg/dL (7.8-10.44); Carbon Dioxide 18 mmol/L (22-29); Chloride 105 mmol/L (98-107); Estimated GFR-MDRD Greater than 90; Globulin 2.7 g/dL (2.4-3.5); Glucose 79 mg/dL (70-105); Potassium 3.4 mmol/L (3.5-5.1); Protein, Total 7.1 g/dL (6.0-8.3); Sodium 137 mmol/L (136-145)
[2018-04-22 16:14] LABS: Troponin I Less than 0.010 ng/mL (< 0.028)
[2018-04-22 16:19] LABS: Bilirubin Negative (Negative); Blood, Urine Negative (Negative); Clarity Clear (Clear); Glucose, Urine (Dipstick) Negative (Negative); Leukocyte Negative (Negative); Nitrite Negative (Negative); Protein, Urine (Dipstick) Negative (Neg-Trace); Urobilinogen 0.2 mg/dL (0.2-1.0)
[2018-04-22 16:35] LABS: Amphetamine Not Detected (NotDetected); Barbiturates Screen Not Detected (NotDetected); Benzodiazepine Screen Not Detected (NotDetected); Cocaine Metabolite Screen Not Detected (NotDetected); Medtox Control Line Valid? VALID (VALID); Methadone Not Detected (NotDetected); Methamphetamine Not Detected (NotDetected); Opiate Screen Not Detected (NotDetected); Oxycodone Screen Not Detected (NotDetected); Phencyclidine (PCP) Not Detected (NotDetected); Specific Gravity, Urine 1.004 (1.002-1.036); THC/Cannabinoid Screen Detected (NotDetected); Tricyclic Screen Not Detected (NotDetected)
== END 2018-04-22 16:53 | disposition home or self-care (01) ==
LOC: NAV ERS 15:31
DX: M62.82 Rhabdomyolysis (principal); F12.10 Cannabis abuse, uncomplicated; I10 Essential (primary) hypertension; F41.9 Anxiety disorder, unspecified
CPT/HCPCS: 80053; 80306; 81003; 82553; 84484; 85025; 93005; 96360

== ENCOUNTER 2023-06-28 13:40 | Emergency (ER) | payer OTHER, SELFPAY ==
[2023-06-28] MEDS ORDERED: Benzonatate 100 MG CAP ONE (14:10)
[2023-06-28] MEDS ORDERED: Ibuprofen 800 MG TAB ONE (14:10)
[2023-06-28 15:38] LABS: SARS-CoV-2 NAA Rapid Test Not Detected (NotDetected)
== END 2023-06-28 15:10 | disposition home or self-care (01) ==
LOC: NAV ERS 13:40
DX: B34.9 Viral infection, unspecified (principal); I10 Essential (primary) hypertension; Z20.822 Contact with and (suspected) exposure to COVID-19
CPT/HCPCS: 99283; U0002

== ENCOUNTER 2023-11-26 07:09 | Emergency (ER) | payer SELFPAY ==
[2023-11-26] MEDS ORDERED: Ibuprofen 800 MG TAB ONE (08:06)
== END 2023-11-26 08:31 | disposition home or self-care (01) ==
LOC: NAV ERS 07:09
DX: J02.9 Acute pharyngitis, unspecified (principal); I10 Essential (primary) hypertension
CPT/HCPCS: 87081; 87430; 99283

== ENCOUNTER 2024-07-07 15:15 | Emergency (ER) | payer SELFPAY ==
[2024-07-07] MEDS ORDERED: Ibuprofen 200 MG TAB ONE (15:45)
[2024-07-07] MEDS ORDERED: Penicillin V Potassium 250 MG TAB ONE (15:45)
== END 2024-07-07 15:52 | disposition home or self-care (01) ==
LOC: NAV ERS 15:15
DX: K04.4 Acute apical periodontitis of pulpal origin (principal); K02.9 Dental caries, unspecified; I10 Essential (primary) hypertension
CPT/HCPCS: 99282